=== PATIENT | female | born 1965 | race Caucasian/White ===

== ENCOUNTER 2016-05-11 15:12 | Emergency (ER) | payer OTHER ==
[~2016-05-11] VITALS: Ht 165.1 cm; Wt 68.1 kg
[~2016-05-11 15:12] MED LIST: ENDOCET 5-3251 EACH PO; IBUPROFEN800 MG PO; MEGESTROL ACETA40 MG PO; MOTRIN600 MG PO; ULTRAM50 MG PO
[2016-05-11 19:34] VITALS: BP 142/92
== END 2016-05-11 19:35 | disposition home or self-care (01) ==
LOC: EME 15:12
PROC: 0HQBXZZ Repair Right Upper Arm Skin, External Approach (ICD-10-PCS; principal; 2016-05-11)
DX: S51.011A Laceration without foreign body of right elbow, initial encounter (principal); W26.8XXA Contact with other sharp object(s), not elsewhere classified, initial encounter; Y93.89 Activity, other specified
CPT/HCPCS: 73090; 99281; 99283